=== PATIENT | male | born 1990 | race Two or more races ===

== ENCOUNTER 2020-06-15 09:37 | Inpatient (IN) | payer OTHER ==
[~2020-06-15] VITALS: Ht 174 cm; Wt 92.0 kg
[2020-06-15 10:09] LABS: COVID AG,FIA SOURCE NASOPHARYNGEAL
[2020-06-15 10:40] LABS: BASOPHILS % (AUTO) 0.5 % (0.0-2.0); EOSINOPHILS % (AUTO) 2.1 % (1.0-6.0); HEMATOCRIT 47.8 % (41-53); LYMPHOCYTES % (AUTO) 28.2 % (22.0-44.0); MEAN CORPUSCULAR HEMOGLOBIN 31.6 pg (26.0-34.0); MEAN CORPUSCULAR HGB CONC 33.4 G/dL (31.0-37.0); MEAN CORPUSCULAR VOLUME 94 fL (80-100); MONOCYTES # (AUTO) 0.7 K/uL (0.1-1.0); MONOCYTES % (AUTO) 10.7 % (2.0-9.0); NEUTROPHILS # (AUTO) 4.1 K/uL (1.8-7.7); NEUTROPHILS % (AUTO) 58.5 % (40.0-70.0); PLATELET COUNT (AUTO) 272 K/uL (150-450); RED BLOOD CELL COUNT(AUTO) 5.06 MIL/uL (4.50-5.90); RED CELL DISTRIBUTION WIDTH 14.3 % (11.5-14.5)
[2020-06-15 10:51] LABS: ANION GAP 5 mmol/L (8-16); CALCIUM, TOTAL 9.4 mg/dL (8.8-10.5); CARBON DIOXIDE 29 mmol/L (22-29); CHLORIDE 104 mmol/L (98-107); GLOMERULAR FILTR. RATE CALC > 60 mL/min (>60); GLUCOSE,RANDOM 107 mg/dL (70-110); POTASSIUM 3.8 mmol/L (3.5-5.1); SODIUM SERUM 138 mmol/L (136-145); UREA NITROGEN, BLOOD 16 mg/dL (7-18)
[2020-06-15] MEDS ORDERED: ACETAMINOPHEN 325 MG TABLET PO PRN ×2 (11:15→13:00)
[2020-06-15] MEDS ORDERED: 0.9% SODIUM CHLORIDE 10 ML SYRINGE IVP PRN (11:15)
[2020-06-15 12:59] VITALS: BP 120/79
[2020-06-15] MEDS ORDERED: ONDANSETRON HCL 4 MG/2 ML VIAL IVP PRN (13:00)
[2020-06-15] MEDS ORDERED: ALBUTEROL SULFATE 2.5 MG/0.5 ML NEB SOLUTION NEB PRN (13:00)
[2020-06-15] MEDS ORDERED: IPRATROPIUM BROMIDE 0.5 MG/2.5 ML NEB SOLUTION NEB PRN (13:00)
[2020-06-15] MEDS ORDERED: MAGNESIUM HYDROXIDE SUSPENSION 30 ML UDCUP PO PRN (13:00)
[2020-06-15] MEDS ORDERED: BISACODYL 10 MG RECTAL RECTAL SUPPOSITORY PR PRN (13:00)
[2020-06-15] MEDS: HEPARIN SODIUM,PORCINE 5,000 UNITS/ML VIAL SQ SCH ×2 (16:25→23:50)
[2020-06-15] MEDS ORDERED: INFLUENZA VIRUS VACCINE QVS 2020-21 (6MO+)/PF 60 MCG/0.5 ML SYRINGE IM ONE (17:45)
[2020-06-15 19:45] VITALS: BP 124/89
[2020-06-15] MEDS: DOCUSATE SODIUM 100 MG CAPSULE PO SCH ×2 (20:03→20:10)
[2020-06-16 04:40] VITALS: BP 105/76
[2020-06-16] MEDS: HEPARIN SODIUM,PORCINE 5,000 UNITS/ML VIAL SQ SCH ×3 (08:14→23:43)
[2020-06-16 08:16] VITALS: BP 104/68
[2020-06-16] MEDS: DOCUSATE SODIUM 100 MG CAPSULE PO SCH (20:09)
[2020-06-16] MEDS: ZOLPIDEM TARTRATE 5 MG TABLET PO PRN (20:09)
[2020-06-16 20:30] VITALS: BP 112/63
[2020-06-17 04:55] VITALS: BP 112/72
[2020-06-17 07:56] VITALS: BP 122/66
[2020-06-17] MEDS: HEPARIN SODIUM,PORCINE 5,000 UNITS/ML VIAL SQ SCH ×3 (09:07→23:20)
[2020-06-17] MEDS: DOCUSATE SODIUM 100 MG CAPSULE PO SCH ×2 (09:07→20:59)
[2020-06-17 11:35] VITALS: BP 132/77
[2020-06-17 20:00] VITALS: BP 131/61
[2020-06-17] MEDS: ZOLPIDEM TARTRATE 5 MG TABLET PO PRN (21:01)
[2020-06-18 04:00] VITALS: BP 123/90
== END 2020-06-18 05:56 | DRG 153 ==
LOC: EMS 09:37 → EEVIPCON 09:37 → 6N 11:18 → UNDOADMIN 12:02 → 6N 12:29
PROVIDERS: ADMIT Hospitalist; ATTEND Hospitalist
DX: J06.9 Acute upper respiratory infection, unspecified (principal); R05 Cough; Z03.818 Encounter for observation for suspected exposure to other biological agents ruled out
CPT/HCPCS: 87426; J1644; 36415-L1; 36415-TC; 71045-TC; U0003-CS